=== PATIENT | male | born 1960 | race Caucasian/White ===

== ENCOUNTER → 2021-03-21 | Outpatient (CLI) | payer BC ==
[~2021-03-21] MED LIST: ASPIR 8181 MG PO; CRESTOR10 MG PO; FINASTERIDE5 MG PO; FLOMAX0.4 MG PO; FOLIC ACID 1 MG1 MG PO; IMDUR ER TAB 3030 MG PO; NORVASC 5 MG TAB5 MG PO; PLAQUENIL 200200 MG PO; PLAVIX75 MG PO; PROTONIX40 MG PO; SINGULAIR10 MG PO; TREXALL15 MG PO; ZANTAC150 MG PO; ZYRTEC10 MG PO
== END ==
LOC: CT 08:00
DX: R31.0 Gross hematuria (principal); N13.2 Hydronephrosis with renal and ureteral calculous obstruction; N28.1 Cyst of kidney, acquired; K44.9 Diaphragmatic hernia without obstruction or gangrene; K57.90 Diverticulosis of intestine, part unspecified, without perforation or abscess without bleeding; N40.0 Benign prostatic hyperplasia without lower urinary tract symptoms; K40.90 Unilateral inguinal hernia, without obstruction or gangrene, not specified as recurrent
CPT/HCPCS: 36415; 82565; Q9967

== ENCOUNTER → 2021-05-15 | Outpatient (CLI) | payer BC | LOC: KOH-I 09:25 | DX: N20.1 Calculus of ureter (principal) | CPT/HCPCS: 74018 ==